=== PATIENT | male | born 1975 | race Caucasian/White ===

== ENCOUNTER 2019-10-28 23:07 | Emergency (ER) | payer MEDICAID ==
[~2019-10-28] VITALS: Ht 170.2 cm; Wt 59.9 kg
[2019-10-28 23:12] VITALS: BP 138/78
--- NOTE | 2019-10-28 23:58 | NUR ---
PT AMBULATED TO BED 8.
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
--- NOTE | 2019-10-29 02:20 | NUR ---
SLING SIZE MEDIUM APPLIED TO PT ARM, FITTED TO SIZE.
[2019-10-29 02:30] VITALS: BP 138/78
--- NOTE | 2019-10-29 02:30 | NUR ---
Patient discharged with v/s stable. Written and verbal after care instructions given and explained. Patient verbalized understanding. Ambulatory with steady gait. All questions addressed prior to discharge. Advised to follow up with PMD.
== END 2019-10-29 02:30 | disposition home or self-care (01) ==
LOC: MED 23:07
DX: S42.032A Displaced fracture of lateral end of left clavicle, initial encounter for closed fracture (principal); V09.9XXA Pedestrian injured in unspecified transport accident, initial encounter; Y93.89 Activity, other specified; Y92.89 Other specified places as the place of occurrence of the external cause; Y99.8 Other external cause status
CPT/HCPCS: 73030; 99283

== ENCOUNTER 2021-07-25 04:05 | Emergency (ER) | payer MEDICAID ==
[~2021-07-25] VITALS: Ht 170.2 cm; Wt 60.8 kg
[2021-07-25 04:09] VITALS: BP 138/87
--- NOTE | 2021-07-25 04:14 | NUR ---
patient to bed 4 ambulatory
--- NOTE | 2021-07-25 04:17 | NUR ---
Dr. Mckeon examining patient.
[2021-07-25] MEDS ORDERED: ACET-10509 PO (04:22)
[2021-07-25] MEDS ORDERED: IBUP-1842 PO (04:22)
[2021-07-25] MEDS ORDERED: ACETAMINOPHEN EXTRA STRENGTH 500 MG TAB PO ONE (04:25)
[2021-07-25 04:42] VITALS: BP 132/72
== END 2021-07-25 04:35 | disposition home or self-care (01) ==
LOC: MED 04:05
DX: S01.01XA Laceration without foreign body of scalp, initial encounter (principal); R41.82 Altered mental status, unspecified; Z79.899 Other long term (current) drug therapy; Y04.2XXA Assault by strike against or bumped into by another person, initial encounter; Y93.89 Activity, other specified; Y92.89 Other specified places as the place of occurrence of the external cause; Y99.8 Other external cause status
CPT/HCPCS: 90471; 90715; 99283